=== PATIENT | male | born 1965 | race Caucasian/White ===

== ENCOUNTER 2019-12-07 09:46 | Emergency (ER) | payer OTHER ==
[~2019-12-07] VITALS: Ht 167.6 cm; Wt 87.0 kg
[2019-12-07] MEDS ORDERED: 0.9 % SODIUM CHLORIDE 10 ML DISP.SYRIN. IV PRN (10:00)
--- NOTE | 2019-12-07 10:39 | RAD ---
Examination: PORTABLE CHEST 1V History: Shortness of breath, COVID 19 positive Comparison/Correlation: None Findings: Portable frontal views of the chest were obtained. Limited pulmonary inflation is noted. Heart size is borderline but this may in part be related to limited pulmonary inflation. Extensive consolidation of the left lung base is noted. Diffuse patchy infiltrates of the lung doyle otherwise is noted. Pulmonary vasculature appears borderline but limited pulmonary inflation may partially account for this. No pneumothorax. Possibility of a small left pleural effusion is raised. Impression: Left basilar consolidation. Patchy infiltrates bilaterally. Possible small left effusion. Electronically signed by: Amol Sanchez MD (12/07/2019 10:36 AM) [id number]
[2019-12-07 11:01] LABS: BASO % 0 % (0-3); EOS % 0 % (0-3); HEMOGLOBIN 15.1 g/dL (13.0-17.5); LYMPH # 1.5 x10^3/uL (1.0-4.8); LYMPH % 12 % (24-48); MEAN CORPUSCULAR HEMOGLOBIN 31 pg (25-35); MEAN CORPUSCULAR HGB CONC 34 g/dL (31-37); MEAN CORPUSCULAR VOLUME 91 fL (79-100); MONO # 0.4 x10^3/uL (0.0-1.1); MONO % 3 % (0-9); NEUT # 10.8 x10^3uL (1.8-7.7); NEUT % 84 % (31-73); PLATELET COUNT 314 x10^3/uL (140-400); RED BLOOD COUNT 4.84 x10^6/uL (4.30-5.70); RED CELL DISTRIBUTION WIDTH 13.8 % (11.5-14.5); WHITE BLOOD COUNT 12.7 x10^3/uL (4.0-11.0)
--- NOTE | 2019-12-07 11:42 | PHYS DOC ---
Past History Past Medical History: No Pertinent History Past Surgical History: No Surgical History Alcohol Use: None General Adult EDM: Chief Complaint: SHORTNESS OF BREATH HPI: HPI: Patient is an inmate from [facility] who was brought here by EMS due to trouble breathing and cough. Symptom has been going on for several days. Patient was tested positive for COVID-19. Patient complains of trouble breathing, he said he cannot catch his breath. There are many inmates who tested positive for COVID-19 over at the [facility] as well. Patient feels fevers, denies any chest pain, no abdominal pain, no nausea vomiting. Review of Systems: Review of Systems: Constitutional: Positive for fever or chills Eyes: Denies change in visual acuity HENT: Denies nasal congestion or sore throat Respiratory: Positive for cough and shortness of breath Cardiovascular: Denies chest pain or edema GI: Denies abdominal pain, nausea, vomiting, bloody stools or diarrhea : Denies dysuria Musculoskeletal: Denies back pain or joint pain Integument: Denies rash Neurologic: Denies headache, focal weakness or sensory changes Endocrine: Denies polyuria or polydipsia Lymphatic: Denies swollen glands Psychiatric: Denies depression or anxiety Heart Score: Risk Factors: Risk Factors: DM, Current or recent (<one month) smoker, HTN, HLP, family history of CAD, obesity. Risk Scores: Score 0 - 3: 2.5% MACE over next 6 weeks - Discharge Home Score 4 - 6: 20.3% MACE over next 6 weeks - Admit for Clinical Observation Score 7 - 10: 72.7% MACE over next 6 weeks - Early Invasive Strategies Current Medications: Current Meds: Current Medications Medications (Trade) Dose Ordered Sig/Sadi Start Time Stop Time Status Last Admin Dose Admin Azithromycin 500 mg/Sodium Chloride 250 ml @ 250 mls/hr 1X ONCE 12/07/19 11:45 12/07/19 12:44 UNV Ceftriaxone Sodium 1 gm/ Sodium Chloride 50 ml @ 100 mls/hr 1X ONCE 12/07/19 11:45 12/07/19 12:14 UNV Sodium Chloride (Normal Saline Flush) 10 ml QSHIFT PRN 12/07/19 10:00 Allergies: Allergies: Allergies Coded Allergies Type Severity Reaction Last Updated Verified No Known Drug Allergies 12/07/19 No Physical Exam: PE: Constitutional: Well developed, well nourished, no acute distress, non-toxic appearance. [] HENT: Normocephalic, atraumatic, bilateral external ears normal, oropharynx moist, no oral exudates, nose normal. [] Eyes: PERRLA, EOMI, conjunctiva normal, no discharge. [] Neck: Normal range of motion, no tenderness, supple, no stridor. [] Cardiovascular:Heart rate regular rhythm, no murmur [] Lungs & Thorax: Diffused crackles in all lung doyle to auscultation [] Abdomen: Bowel sounds normal, soft, no tenderness, no masses, no pulsatile masses. [] Skin: Warm, dry, no erythema, no rash. [] Back: No tenderness, no CVA tenderness. [] Extremities: No tenderness, no cyanosis, no clubbing, ROM intact, no edema. [] Neurologic: Alert and oriented X 3, normal motor function, normal sensory fun ction, no focal deficits noted. [] Psychologic: Affect normal, judgement normal, mood normal. [] Current Patient Data: Labs: Laboratory Tests Test 12/07/19 10:38 White Blood Count 12.7 x10^3/uL (4.0-11.0) H Red Blood Count 4.84 x10^6/uL (4.30-5.70) Hemoglobin 15.1 g/dL (13.0-17.5) Hematocrit 44.0 % (39.0-53.0) Mean Corpuscular Volume 91 fL (79-100) Mean Corpuscular Hemoglobin 31 pg (25-35) Mean Corpuscular Hemoglobin Concent 34 g/dL (31-37) Red Cell Distribution Width 13.8 % (11.5-14.5) Platelet Count 314 x10^3/uL (140-400) Neutrophils (%) (Auto) 84 % (31-73) H Lymphocytes (%) (Auto) 12 % (24-48) L Monocytes (%) (Auto) 3 % (0-9) Eosinophils (%) (Auto) 0 % (0-3) Basophils (%) (Auto) 0 % (0-3) Neutrophils # (Auto) 10.8 x10^3uL (1.8-7.7) H Lymphocytes # (Auto) 1.5 x10^3/uL (1.0-4.8) Monocytes # (Auto) 0.4 x10^3/uL (0.0-1.1) Eosinophils # (Auto) 0.0 x10^3/uL (0.0-0.7) Basophils # (Auto) 0.0 x10^3/uL (0.0-0.2) Prothrombin Time 10.3 SEC (9.4-11.4) Prothrombin Time INR 1.0 (0.9-1.1) Activated Partial Thromboplast Time 30 SEC (23-33) D-Dimer (Dana) 0.58 mg/L (0.00-0.50) H Vital Signs: Vital Signs Date Time Temp Pulse Resp B/P (MAP) Pulse Ox O2 Delivery O2 Flow Rate FiO2 12/07/19 11:00 98.7 104 20 191/102 (131) 93 Nasal Cannula 5.0 EKG: EKG: [] Radiology/Procedures: Radiology/Procedures: [place] [address] IMAGING REPORT Signed PATIENT: ANIA PINA ACCOUNT: [id number] : 1965 LOCATION: ER AGE: 54 SEX: M EXAM STATUS: PRE ER ORD. PHYSICIAN: MALINA ALVAREZ DO REASON: SOA, COVID-19 POSITIVE PROCEDURE: PORTABLE CHEST 1V Examination: PORTABLE CHEST 1V History: Shortness of breath, COVID 19 positive Comparison/Correlation: None Findings: Portable frontal views of the chest were obtained. Limited pulmonary inflation is noted. Heart size is borderline but this may in part be related to limited pulmonary inflation. Extensive consolidation of the left lung base is noted. Diffuse patchy infiltrates of the lung doyle otherwise is noted. Pulmonary vasculature appears borderline but limited pulmonary inflation may partially account for this. No pneumothorax. Possibility of a small left pleural effusion is raised. Impression: Left basilar consolidation. Patchy infiltrates bilaterally. Possible small left effusion. Electronically signed by: Amol Madison MD (12/07/2019 10:36 AM) [id number] DICTATED AND SIGNED BY: AMOL MADISON MD DATE: 12/07/19 1036 CC: MALINA ALVAREZ DO ~ [][address] [address] IMAGING REPORT Signed PATIENT: ANIA PINA ACCOUNT: [id number] : 1965 LOCATION: ER AGE: 54 SEX: M EXAM STATUS: PRE ER ORD. PHYSICIAN: MALINA ALVAREZ DO REASON: right side CVL placement PROCEDURE: CHEST AP ONLY CHEST AP ONLY History: Right-sided central venous line placement. Comparison: December 07, 2019 Findings: Interval placement right-sided subclavian line with tip projecting over the right atrium. Low lung volumes. Diffuse interstitial and alveolar opacities, unchanged. Enlarged cardiac size, unchanged. No pneumothorax. Impression: 1. Right sided central line with tip projecting over the right atrium. No pneumothorax. 2. Diffuse interstitial and alveolar opacities, unchanged. Electronically signed by: Eric Kinney DO (12/07/2019 12:13 PM) [id number] DICTATED AND SIGNED BY: ERIC KINNEY DO DATE: 12/07/19 1213 CC: MALINA ALVAREZ DO ~ Indication: IV ACCESS Consent: YES, FROM PATIENT Procedure: The patient was positioned appropriately and the skin over the [RIGHT SUBCLAVIAN VEIN] was CLEANED WITH BETADINE THEN CHLORHEXIDINE. Local anesthesia was 15 ML OF 1% LIDOCAINE. A large bore needle was used to identify the vein. A guide wire was then inserted into the vein through the needle. A triple lumen CVL was then inserted into the vessel over the guide wire using the Seldinger technique. All ports showed good, free flowing blood return and were flushed with saline solution. The catheter was then securely fastened to the skin WITH SUTURES, and covered with a sterile dressing. A post procedure X-ray DID NOT SHOWN ANY PNEUMOTHORAX, NORMAL POSITION.. The patient tolerated the procedure WELL. Complications: NONE Critical care time was [60 minutes exclusive of procedures. Course & Med Decision Making: Course & Med Decision Making Patient's RNs HAD trouble place peripheral iv. A decision was made to place a central line for IV access. Patient is a 54-year-old male who is infected with COVID-19 pneumonia found to be hypoxic. He will need to be evaluated by pulmonology, infectious disease therefore he needs to be transferred to [facility] for treatment. Dr. Albarran, hospitalist, agreed to accept patient there. COVID-19 CRITERIA: The patient was evaluated during the global COVID-19 pandemic, and that diagnosis was suspected/considered upon their initial presentation. Their evaluation, treatment and testing was consistent with current guidelines for patients who present with complaints or symptoms that may be related to COVID-19. Pertinent Labs and Imaging studies reviewed. (See chart for details) [] Dragon Disclaimer: Dragon Disclaimer: This electronic medical record was generated, in whole or in part, using a voice recognition dictation system. Departure Departure: Impression: Primary Impression: COVID-19 virus infection Additional Impressions: Pneumonia Hypoxia Disposition: XF S[facility]-TRM HOSP (transferred to [facility], accepted by Dr. Albarran) Condition: STABLE COVID-19 Assessment COVID-19 Patient Risks: Age 65 or older: No Sign of co-morbidity: Yes Exp to person + for COVID: Yes Exp to PUI: Yes Travel from affected area: No Lower respiratory symptoms: Yes Fever: Yes Other: No PPE Use: Full PPE with N95 mask or PAPR: Yes (full PPE with PAPR) MALINA ALVAREZ DO December 07, 2019 11:42
[2019-12-07] MEDS ORDERED: AZITHROMYCIN 500 MG in IV NORMAL SALINE 250ML 250 ML IV ONE (11:45)
[2019-12-07] MEDS ORDERED: IV NORMAL SALINE 50ML 50 ML ONE (11:53)
[2019-12-07] MEDS ORDERED: cefTRIAXone SODIUM 1 GM VIAL ONE (11:53)
[2019-12-07] MEDS ORDERED: AZITHROMYCIN 500 MG VIAL. IV ONE (11:53)
[2019-12-07] MEDS ORDERED: IV NORMAL SALINE 250ML 250 ML ONE ×2 (11:53→11:54)
[2019-12-07 11:58] LABS: CALCIUM 8.8 mg/dL (8.5-10.1); CREATININE 0.8 mg/dL (0.7-1.3); GFR 100.4; POTASSIUM 3.4 mmol/L (3.5-5.1)
[2019-12-07 12:15] LABS: ALBUMIN 3.1 g/dL (3.4-5.0); ALBUMIN/GLOBULIN RATIO 0.6 (1.0-1.7); TOTAL BILIRUBIN 0.5 mg/dL (0.2-1.0); TOTAL PROTEIN 8.4 g/dL (6.4-8.2)
--- NOTE | 2019-12-07 12:16 | RAD ---
CHEST AP ONLY History: Right-sided central venous line placement. Comparison: December 07, 2019 Findings: Interval placement right-sided subclavian line with tip projecting over the right atrium. Low lung volumes. Diffuse interstitial and alveolar opacities, unchanged. Enlarged cardiac size, unchanged. No pneumothorax. Impression: 1. Right sided central line with tip projecting over the right atrium. No pneumothorax. 2. Diffuse interstitial and alveolar opacities, unchanged. Electronically signed by: Eric Kinney DO (12/07/2019 12:13 PM) [id number]
[2019-12-07] MEDS ORDERED: ACETAMINOPHEN 500 MG TABLET PO ONE ×2 (12:38→12:45)
[2019-12-07 15:24] VITALS: BP 124/74
--- NOTE | 2019-12-07 16:43 | EKG ---
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
== END 2019-12-07 16:46 | disposition short-term general hospital (02) ==
LOC: ER 09:46 → EEVIPCON 09:46 → ER 16:46
DX: Z20.828 Contact with and (suspected) exposure to other viral communicable diseases (principal); J12.89 Other viral pneumonia; R09.02 Hypoxemia
CPT/HCPCS: 36415; 36556; 71045; 80053; 82553; 83605; 84484; 85025; 85379; 85384; 85610; 85730; 87040; 93005; 96365; 96368; 99291; J0456; J0696; J7050